=== PATIENT | male | born 1985 | race Caucasian/White ===

== ENCOUNTER 2020-11-07 21:41 | Emergency (ER) | payer MEDICAID ==
[~2020-11-07] VITALS: Ht 175.3 cm; Wt 90.7 kg
[2020-11-07 21:49] VITALS: BP 134/94
== END 2020-11-07 23:52 | disposition left against medical advice (07) ==
LOC: ER 21:41
DX: I10 Essential (primary) hypertension (principal); R51.9 Headache, unspecified; Z53.21 Procedure and treatment not carried out due to patient leaving prior to being seen by health care provider